=== PATIENT | female | born 1985 | race Caucasian/White ===

== ENCOUNTER 2019-12-01 16:02 | Emergency (ER) | payer OTHER, SELFPAY ==
--- NOTE | ~2019-12-01 | XR_ITS ---
EXAMINATION: XR hand RT min 3V INDICATION: Right hand pain, initial encounter TECHNIQUE: Three views of the right hand are obtained. COMPARISON: None available FINDINGS: There is an acute, traumatic, closed, oblique shaft fracture of the fourth metacarpal. Ther e is approximately one cortical width of medial displacement of the distal fracture fragment. Soft ti ssue swelling surrounds the fracture. The joint spaces are normal. No additional acute osseous findin gs are evident. IMPRESSION: 1. Acute shaft fracture of the fourth metacarpal. Reviewed, dictated and finalized at location A.
[2019-12-01 16:26] VITALS: BP 138/64; PULSE 68; RESP 16; TEMP 36.6; O2SAT 100
--- NOTE | 2019-12-01 16:45 | ED.GENADULT ---
HPI - General Adult General Chief complaint: Extremity Injury, Upper Stated complaint: right hand pain Time Seen by Provider: 12/01/19 16:33 Source: patient Mode of arrival: ambulatory Limitations: no limitations History of Present Illness HPI narrative: 34-year-old female patient presents to the [facility] with complaints of right hand pain. Patient states that about 3 days ago they were going up some steps with a friend and states that her friend tripped and started to fall back onto her and she fell back onto her right hand. Patient states since then she has had some pain to the right ring finger and right pinky pinky finger. Patient states she is also noticed some bruising to the dorsal palm side of the hand. Patient denies any numbness and tingling at this time. Patient states she has been icing and taking Tylenol for pain. Related Data Allergies Allergy/AdvReac Type Severity Reaction Status Date / Time No Known Allergies Allergy Verified 09/06/16 14:53 Review of Systems Review of Systems: Narrative: CONSTITUTIONAL: Denies fever, chills, or sweats. EYES: Denies visual changes, redness, or discharge. ENT: Denies rhinorrhea, congestion, sore throat, or otalgia. CARDIOVASCULAR: Denies chest pain, palpitations, or edema. RESPIRATORY: Denies cough or dyspnea. GASTROINTESTINAL: Denies abdominal pain, nausea, vomiting, or diarrhea. GENITOURINARY: Denies dysuria or hematuria. SKIN: Denies rash or itching. MUSCULOSKELETAL: Denies back pain, joint pain, or myalgia. Positive right hand pain NEUROLOGIC: Denies headache, numbness, or weakness. PSYCHIATRIC: Denies anxiety or depression. PMFSH Comments At the time of my signature I agree with nursing past medical history, surgical, social, and family history. There is no relevant family history pertinent to the presenting complaint. Exam Narrative: Exam Narrative: GENERAL: Well-appearing, well-nourished, and in no acute distress. HEAD: Normocephalic, atraumatic. EYES: PERRLA and EOMI. ENT: Nares clear, no rhinorrhea or epistaxis. Mucous membranes moist. NECK: Supple. No lymphadenopathy CHEST: Clear to auscultation. No respiratory distress. HEART: Regular rate and rhythm. No murmur heard. Normal peripheral pulses. ABDOMEN: Soft, nontender, nondistended, normal active bowel sounds. EXTREMITIES: The R hand is without obvious asymmetry or deformity when compared to the L hand. No swelling, erythema, atrophy, or obvious deformity. Patient does have some ecchymosis noted on the dorsal side of the hand right below the fourth and fifth digits as well as some bruising noted to the palm side underneath the fourth and fifth digits. The MIP joint on the fourth digit on the left hand does appear as distinctive as on the right hand and does appear to be flattened. No open wounds, nail avulsion, tissue avulsion, partial or complete amputation, subungual hematoma, bony deformity. Normal cascade of fingers. Normal flexion and extension of fingers. FDS and FDP intact aganist restistance. No focal fullness, thobbing pain, swelling of fingertip. Tenderness noted to the fourth digit on the right hand over the MIP joint. Pulses and cap refill. SKIN: Warm, dry, no rash. NEURO: No focal deficits. Alert and oriented x3. Course Reevaluation(s) Reevaluation #1: Reevaluated patient after her x-rays have resulted. Discussed with her that it does appear that she has a metacarpal fracture on the right hand. Discussed with her that our plan of care today is to go ahead and splint her and have her follow-up with Ortho. Discussed with her she can continue taking Tylenol for pain. Patient is aware the plan of care at this time denies any other questions or concerns. Date: 12/01/19 Time: 18:07 Vital Signs Vital signs: Vital Signs Temperature 36.6 C 12/01/19 16:26 Pulse Rate 68 12/01/19 16:26 Respiratory Rate 16 12/01/19 16:26 Blood Pressure 138/64 12/01/19 16:26 Pulse Oximetry 100 12/01/19 16:26
--- NOTE | 2019-12-01 18:35 | PC.NURSE ---
Camila ordered a Boxer splint to be placed on pt R hand. Splint applied.
[2019-12-01 18:36] VITALS: BP 124/80; PULSE 80; RESP 20; TEMP 36.7; O2SAT 99
== END 2019-12-01 18:37 | disposition home or self-care (01) ==
PROVIDERS: Emergency Provider Nurse Practitioner Family; PCP Internal Medicine Infectious Disease
DX: S62.324A Displaced fracture of shaft of fourth metacarpal bone, right hand, initial encounter for closed fracture (principal); W10.9XXA Fall (on) (from) unspecified stairs and steps, initial encounter
CPT/HCPCS: 29125; 73130; 99284

== ENCOUNTER 2020-08-17 11:22 | Outpatient (CLI) | payer OTHER, SELFPAY ==
--- NOTE | ~2020-08-17 | MMUS_ITS ---
EXAMINATION: MM diagnostic krystal LT w sherrie, US breast LT limited HISTORY: Left breast pain, possible left breast lump TECHNIQUE: ML, MLO and craniocaudal 3-D tomosynthesis images of the left breast were performed and sy nthetic 2-D images were generated. CAD analysis was submitted and interpreted. High resolution target ed upper outer quadrant left breast ultrasound which includes area of clinical complaint of possible lump was performed. COMPARISON: 05/23/2014 left breast ultrasound, reported normal BREAST PARENCHYMAL COMPOSITION: The breasts are heterogeneously dense, which may obscure small masses . FINDINGS: MAMMOGRAPHIC FINDINGS: No suspicious mass or architectural distortion, malignant calcification, skin thickening or retractio n is detected. ULTRASOUND: There is no evidence of focal abnormal solid or cystic lesion or abnormal shadowing in the vicinity o f the patient's complaint of left breast lump in the upper outer quadrant. IMPRESSION: 1. No mammographic evidence of malignancy 2. 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 No mammographic evidence of malignancy 2. Routine mammographic screening beginning at age 40 is recommended unless sym ptoms or physical findings present earlier BI-RADS Category 1: Negative
== END 2020-08-17 11:23 | disposition home or self-care (01) ==
PROVIDERS: PCP Internal Medicine Infectious Disease; Visit Provider Obstetrics & Gynecology
DX: N63.20 Unspecified lump in the left breast, unspecified quadrant (principal)
CPT/HCPCS: 76642; 77061; 77065; G0279

== ENCOUNTER → 2022-05-08 15:32 | Outpatient (CLI) | payer OTHER, SELFPAY ==
--- NOTE | ~2022-05-08 | XR_ITS ---
EXAMINATION: XR chest 2V 05/08/2022 16:55 INDICATION: Cough PROCEDURE: 2 view chest COMPARISON: 11/03/2018 FINDINGS: The lungs are clear. The cardiomediastinal silhouette is within normal limits. There are no pleural effusions. There is no pneumothorax suspected. There is dextroscoliosis of the thoracic spine. IMPRESSION: 1: NO ACUTE CARDIOPULMONARY DISEASE. Reviewed, dictated and finalized at location A. 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
== END ==
PROVIDERS: PCP Emergency Medicine; Visit Provider Emergency Medicine
DX: R05.9 Cough, unspecified (principal); R06.02 Shortness of breath
CPT/HCPCS: 71046

== ENCOUNTER 2022-07-20 12:36 | Emergency (ER) | payer OTHER, SELFPAY ==
--- NOTE | ~2022-07-20 | XR_ITS ---
XR wrist RT min 3V DATE: 07/20/2022 13:02 INDICATION: Right wrist pain following injury TECHNIQUE: 4 views COMPARISON: None FINDINGS: No fracture or dislocation, periosteal reaction or bone destruction. No erosive change or c hondrocalcinosis. Joint spaces are preserved. 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 SPREADER IMPRESSION: Negative
--- NOTE | ~2022-07-20 | XR_ITS ---
XR forearm RT 2V DATE: 07/20/2022 13:01 INDICATION: Right elbow and wrist pain TECHNIQUE: AP and lateral views COMPARISON: None FINDINGS: No fracture or dislocation, periosteal reaction or bone destruction. No elbow joint effusio n is evident. 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
[2022-07-20 12:38] VITALS: BP 135/74; PULSE 58; RESP 20; TEMP 36.7; O2SAT 100
--- NOTE | 2022-07-20 12:47 | ED.UPPEXIN ---
HPI - Extremity Injury (Upper) General Chief Complaint: Extremity Injury, Upper Stated Complaint: FOREARM INJURY Time Seen by Provider: 07/20/22 12:41 History of Present Illness HPI narrative: This is a 37-year-old female who denies past medical history, presenting the emergency department complaining of right elbow and wrist pain for the past 2 days. She states she fell while walking her dog 2 days ago landing on the right arm. Pain is dull and intermittently sharp, rated 4-5/10, aggravated with supination of the hand and flexion at the elbow. She has no other complaints today. Related Data Allergies Allergy/AdvReac Type Severity Reaction Status Date / Time No Known Allergies Allergy Verified 07/20/22 12:49 Review of Systems Review of Systems: CONSTITUTIONAL: Denies fever, chills, or sweats. CARDIOVASCULAR: Denies chest pain, palpitations, or edema. RESPIRATORY: Denies cough or dyspnea. GASTROINTESTINAL: Denies abdominal pain, nausea, vomiting, or diarrhea. GENITOURINARY: Denies dysuria or hematuria. MUSCULOSKELETAL: Right elbow pain denies back pain, or myalgia. PMFSH Surgical History Surgical History History of foot surgery bilateral Family History Family History Other Malignant neoplasm Social History Social History Smoking packs per day: 0.5 Smoking cigarettes per day: 10.0 Years smoked: 1 Smoking pack-years: 0.50 Smoking status: Former smoker Tobacco type: cigarettes Smoking end date: 06/08/11 Alcohol intake: current Drinks per week: 2 Substance use type: does not use Lack of Transportation: No Lack of Food: Never True Current Housing: I Have Housing Concerned About Future Housing: No Difficulty Paying Gas/Electric Bills: No Difficulty Paying for Meds: No Currently Unemployed: No Education: High School Diploma/GED Difficulty w/ Childcare or Family Care: No Exam Narrative: GENERAL: Well-appearing, well-nourished, and in no acute distress. HEAD: Normocephalic, atraumatic. CHEST: Clear to auscultation. No respiratory distress. No wheezes rales or rhonchi HEART: Regular rate and rhythm. No murmur heard. Normal peripheral pulses. ABDOMEN: Soft, nontender, nondistended, normal active bowel sounds. EXTREMITIES: Mild ecchymosis noted to the lateral aspect of the right elbow. There is no obvious deformity. Mild tenderness to flexion and extension of the right elbow, increased tenderness with supination of the right hand. No anatomical snuffbox tenderness to palpation. Normal range of motion. No edema. SKIN: Warm, dry, no rash. NEURO: No focal deficits. Alert and oriented x3. PSYCH: Normal mood and affect. Course Course Emergency Course: 13:26 - X-rays negative for fracture or dislocation. Recommend Tylenol and ibuprofen as needed for pain control. I recommended regular range of motion exercises. Discussed return and emergency precautions including signs/symptoms of neurovascular compromise. The patient voiced understanding and is comfortable with the plan. All questions answered to her satisfaction. Vital Signs Vital signs: Vital Signs Temperature 98.0 F 07/20/22 12:38 Pulse Rate 58 L 07/20/22 12:38 Respiratory Rate 20 07/20/22 12:38 Blood Pressure 135/74 07/20/22 12:38 Pulse Oximetry 100 07/20/22 12:38 Oxygen Delivery Room Air 07/20/22 12:38 Temperature 98.0 F 07/20/22 12:38 Pulse Rate 58 L 07/20/22 12:38 Respiratory Rate 20 07/20/22 12:38 Blood Pressure 135/74 07/20/22 12:38 Pulse Oximetry 100 07/20/22 12:38 Oxygen Delivery Room Air 07/20/22 12:38 MDM - Extremity Injury (Upper) MDM Narrative Medical decision making narrative: Plan: Imaging, reassess Differential Diagnosis Differential diagnosis: Likely other (Fracture, dislocation,
== END 2022-07-20 13:40 | disposition home or self-care (01) ==
PROVIDERS: Emergency Provider Preventive Medicine Aerospace Medicine; PCP Emergency Medicine
DX: S50.01XA Contusion of right elbow, initial encounter (principal); Z87.891 Personal history of nicotine dependence; W18.30XA Fall on same level, unspecified, initial encounter; Y93.K1 Activity, walking an animal
CPT/HCPCS: 73090; 73110; 99283

== ENCOUNTER 2022-09-01 14:00 | Outpatient (RCR) | payer OTHER, SELFPAY ==
--- NOTE | 2022-07-30 15:30 | OTOPEVAL1 ---
Assessment and note entered by ODILON Arrington/Ольга Evaluation Information Assessment Status Evaluation Diagnosis Fall with R arm injury 07/16/2022 Subjective Information Patient presents to outpatient OT following a fall onto elbow on 07/16/2022 resulting in pain, numbness and tingling in hand. Patient reports shooting pain and numbness in dorsal aspect of digit 1-2 and beck aspect of digit 4-5 with forearm supination/pronation. Patient reports it is difficult to perform gripping/grasping tasks, unable to open a bottle. Reported Pain Level Pain Score 0: Self Report Assessment OT Clinical Summary Viktoria is a R hand dominant female who presents to Outpatient OT following a fall resulting in R elbow pain. Patient reports pain in R elbow over the lateral/dorsal aspect with occasional numbness/ tingling in hand over the dorsal aspect of digits 1-2 and beck aspect of digits 4-5. 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 Patient has a R UE positive tinnels over the cubital tunnel and a negative elbow flexion test indicating ulnar nerve compression symptoms. Patient demonstrates sensation WNL measured through 2 point discrimination. Patient would benefit from skilled OT for UE exercise and instruction, modalities, manual therapy to increase functional use of R UE and decrease pain. Plan of Care Interventions Therapeutic Exercise,Manual Therapy,Neuro Re- education,Therapeutic Activities,Hot Pack/Cold Pack,Ultrasound,Paraffin OT Services Indicated Yes Treatment Frequency and 1x/week, 4 weeks Duration These treatments will address the objective and functional deficits as defined above. The patient will be advanced safely and appropriately in order for the patient to progress towards his/her prior level of function. Additional exercises will be introduced and as well as a comprehensive home exercise program upon discharge, if needed, ?to ensure carryover of functional gains achieved in the clinic. This treatment plan has been reviewed and agreement upon by the patient.
--- NOTE | 2022-08-20 14:27 | PCOTNOTE ---
Patient called & re-scheduled appointment this date due to work conflict. Re-scheduled treatment for 08/27/2022.
--- NOTE | 2022-09-01 15:07 | OTOPDC ---
Assessment and note entered by ODILON Arrington/Ольга Evaluation Information Assessment Status Discharge Diagnosis Fall with R arm injury 07/16/2022 Subjective Information Patient presents to outpatient OT following a fall onto elbow on 07/16/2022. 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 Patient reports no numbness in little fingers, decreased pain in thumb. Patient reports still notices occasional discomfort in elbow with pulling sheets onto beds at work, but is now able to complete all daily and functional tasks with R UE. Reported Pain Level Pain Score 0: Self Report Assessment OT Clinical Summary Viktoria is a R hand dominant female who presents to Outpatient OT for a re-evaluation following a fall resulting in R elbow pain. Patient attended x4 weeks of therapy for addressing pain in R elbow over the lateral/dorsal aspect with occasional numbness/tingling in hand over the dorsal aspect of digits 1-2 and beck aspect of digits 4-5. 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 Patient reports since beginning therapy is now able to complete all daily tasks with only occasional discomfort in elbow. Patient is pleased with progress made in therapy. Patient is to be discharged from skilled OT with goals met and independence with all HEP materials. Plan of Care OT Services Indicated No
== END 2022-09-02 09:53 | disposition home or self-care (01) ==
LOC: ANHGOSHOT 14:00
PROVIDERS: PCP Emergency Medicine; Visit Provider Family Medicine
DX: G56.20 Lesion of ulnar nerve, unspecified upper limb (principal); M79.601 Pain in right arm; M12.521 Traumatic arthropathy, right elbow
CPT/HCPCS: 97018; 97035; 97110; 97140; 97165

== ENCOUNTER 2023-03-05 12:49 | Outpatient (CLI) | payer OTHER, SELFPAY ==
--- NOTE | ~2023-03-05 | US_ITS ---
US breast LT limited DATE: 03/05/2023 14:32 INDICATION: Left breast lump at 12:00 1 cm from nipple TECHNIQUE: High-resolution real-time and color flow imaging targeted at 2:00 1 cm from nipple COMPARISON: 08/17/2020 diagnostic left mammogram and limited left breast ultrasound FINDINGS: No suspicious mass or suspicious shadowing or abnormal vascularity is detected in the area of concern. IMPRESSION: BI-RADS Category 1: Negative Reviewed, dictated and finalized at Location A. Reviewed, dictated and finalized at location A.
== END 2023-03-05 12:50 | disposition home or self-care (01) ==
PROVIDERS: PCP Emergency Medicine; Visit Provider Nurse Practitioner
DX: N63.20 Unspecified lump in the left breast, unspecified quadrant (principal)
CPT/HCPCS: 76642

== ENCOUNTER 2024-09-27 13:30 | Outpatient (CLI) | payer OTHER, SELFPAY ==
--- NOTE | ~2024-09-27 | MM_ITS ---
EXAMINATION: MM diagnostic krystal BI w sherrie HISTORY: Palpable left breast abnormality TECHNIQUE: Additional 3-D tomosynthesis images of the breasts were performed and synthetic 2-D images were generated. CAD analysis was submitted and interpreted. COMPARISON: 08/17/2020 BREAST PARENCHYMAL COMPOSITION: Dense: The breasts are heterogeneously dense, which may obscure small masses FINDINGS: There are no suspicious masses, calcifications or architectural distortion in either breast to suggest malignancy. IMPRESSION: 1. No mammographic evidence for malignancy. 2. Correlation with left breast ultrasound recommended for complete evaluation of palpable breast abn ormality. BI-RADS Category 0: Incomplete: Needs additional imaging evaluation. Reviewed, dictated and finalized at location A. IMPRESSION: 1. No mammographic evidence for malignancy. 2. Correlation with left breast ultrasound recommended for complete evaluation of palpable breast abnormality. BI-RADS Category 0: Incomplete: Needs additional imaging evaluation.
--- OUTSIDE RECORDS SUMMARY | 2024-09-27 15:18 | XMS_ITS | Clinical Summary ---
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
== END 2024-09-27 13:31 | disposition home or self-care (01) ==
PROVIDERS: PCP Emergency Medicine; Visit Provider Nurse Practitioner
DX: N63.0 Unspecified lump in unspecified breast (principal); R92.8 Other abnormal and inconclusive findings on diagnostic imaging of breast
CPT/HCPCS: 77062; 77066; G0279

== ENCOUNTER 2024-09-28 14:09 | Outpatient (CLI) | payer OTHER, SELFPAY ==
--- NOTE | ~2024-09-28 | US_ITS ---
US breast LT complete 09/28/2024 14:34 Indication: Palpable left breast abnormality Procedure: High-resolution complete ultrasound of the left breast including all 4 quadrants in the hurd bareolar location Comparison: Comparison to multiple prior studies sequentially, with oldest reviewed study dated 05/08. Findings: There is a cluster of microcysts at 6:00, 1 cm from the nipple. No other suspicious masses, or cysts are identified in the left breast to suggest malignancy. Normal heterogeneous echotexture. Impression: 1: No sonographic evidence for malignancy in the left breast. Routine yearly screening mammogram beginning at age 40 and regular clinical breast examination are re commended. BI-RADS CATEGORY 2 - BENIGN FINDINGS Reviewed, dictated and finalized at location A. Impression: 1: No sonographic evidence for malignancy in the left breast. Routine yearly screening mammogram beginning at age 40 and regular clinical ileana ast examination are recommended. BI-RADS CATEGORY 2 - BENIGN FINDINGS
--- OUTSIDE RECORDS SUMMARY | 2024-09-28 16:08 | XMS_ITS | Data Portability ---
Author Organization [facility] [place] Address [address] [place] [address] [place] [address] Care Team Providers Care Supervisor Engraving Name Role Phone YOCASTA RAMIREZ Primary Care Provider Assessment Encounter Date Assessment Date Assessment LastModified by Organization Details LastModified Time 01/22/2023 01/22/2023 Annual gynecological exam performed. Patient will come back in a year unless there are new symptoms. [email or web address] Not available 01/22/2023 15:22:13 Plan of Treatment Reminders Order Date Submit Date Provider Last Modified By Organization Details Last Modified Time Details Appointments None recorded. Lab urinalysis, dipstick [email or web address] [place] [address], [address], [address], [place], [address], 11:43:54 culture, urine 2024 025 [facility] (Lab), [address], [place], [address], 00:14:28 test, urine 2024 025 [email or web address] [place], [address], [address], [place], [address], 11:39:39 unlisted lab - women's health swab plus, ESTEFANI 2024 025 [facility] (Lab), [address], [place], [address], 00:14:28 Referral None recorded. Procedures None recorded. Surgeries None recorded. Imaging US, pelvis 2024 [address]25 [address], [address], [place], [address], 5 22:17:18 US, transvagina l 2024 [address], [address], [place], [address], 22:17:18 US, pelvis, complete 2024 025 [facility], [address], [place], [address], 04:00:45 MAMMO, diagnostic, digital, bilateral 2024 025 [facility], [address], [place], [address], 16:50:44 US, breast, unilateral - left breast lumps [email or web address], [address], [place], [address], 5 12:05:43 US, breast, unilateral 2022 023 [facility], [address], [place], [address], 3 15:27:41 Medication Orders None recorded. Patient TargetsNo targets recorded. Patient InstructionsNo instructions recorded. Reason for Referral None Reported. Results Created Date Observation Date Name Description Value Unit Range Abnormal Flag Note LastModifiedBy Organization Detail LastModifiedTime 01/23/20 23 01/22/2023 IMAGE GUIDE D PAP AND HPV REGAR DLESS image guided Pap, HPV regardless of Pap result SEE RESULT S BELOW CASE REPOR T: Cytol ogy Gynec ologi beatriz Repor t Case: [id number] Autho iban doyle Provi josep: Alyse Kowalski, BRIE Hernandes cted: 01/22 1522 Order ing Locat ion: [place] Patho logcarmen Recei trevin: 01/23 0235 First Scree n: Viola Gama ica Rescr een: Marielos day, Christina love, CT Speci men: Screvictoriano valverde Pap - Image d, Cervi x STATE MENT OF ADEQU ACY: Satis facto ry for evalu ation Trans forma tion zone compo nent absen t The absen ce of an endoc ervic al compo nent was confi rmed by an addit ional isabel myers. FINAL DIAGN OSIS: Negat ro for Intra epith elial Lesio n or Roman harper (NIL) . Elect laura daniels benjy d by Marielos day, Christina love, CT on 2022 at 5:41 PM ----- ----- ----- ----- ----- ----- ----- ----- ----- ----- ----- ----- ----- ----- ----- ----- ----- ---- HPV RESUL TS: HPV mRNA E6/E7 : No HPV mRNA Detec christiano NOTE: This high risk HPV mRNA assay detec ts fourt een high- risk HPV types (16, 18, 31, 33, 35, 39, 45, 51, 52, 56, 58, 59, 66, 68) witho ut diffe renti ation . COMME NT: This speci men was revie wed by a Cytot echno logis t and/o r Patho logis t (as indic ated in this repor t) after evalu ation using the Thinp rep Imagi ng Syste m. CLINI BEATRIZ INFOR MATIO N: Menst rual Statu s: LMP (if appli cable ): Clini beatriz Histo ry/Pr eviou s Pap: Type of Neopl beto (if appli cable ): Signi fican t Clini beatriz Findi ngs: Other Histo ry: Hormo kyle (if appli cable ): PAP EDUCA DELISA L NOTE: The Pap Test is a scree abram test with an inher ent false negat ro rate. Liqui d-bas ed sampl ing may decre ase, but will not elimi mukul, false negat ro resul ts. A negat ro resul t does not precl ude the prese nce and/o r devel opmen t of disea se, since the prese nce of abnor mal cells in the sampl e depen ds on the locat ion of the lesio n and sampl ing techn ique. Jennifer nued regul ar scree abram is the best metho d of cance r preve ntion . If repor christiano cytol ogic findi ng do not corre late with physi beatriz and/o r histo rical findi ngs, furth er inves tigat ion is recom fernando d, as clini melyssa warra nted. Not Available [facility] (Lab) [address] [facility], [place], [address], 01/23/2023 18:45:16 09/16/19 25 09/15/2024 WOMEN 'S HEALT H SWAB PLUS, ESTEFANI bacterial vaginosis (bv), tma Negati ve negati ve Not Available [facility] (Lab) [address] [place], [address], 09/18/2024 00:14:28 09/16/19 25 09/15/2024 WOMEN 'S HEALT H SWAB PLUS, ESTEFANI jada species, tma Negati ve negati ve Not Available [facility] (Lab) [address] [place], [address], 09/18/2024 00:14:28 09/16/19 25 09/15/2024 WOMEN 'S HEALT H SWAB PLUS, ESTEFANI jada glabrata, tma Negati ve negati ve Not Available [facility] (Lab) [address] [place], [address], 09/18/2024 00:14:28 09/16/1909/15/2024 WOMEN 'S HEALT H SWAB PLUS, ESTEFANI trichomonas vaginalis, tma Negati ve negati ve Not Available [facility] (Lab) [address] [place], [address], 09/18/2024 00:14:28 09/16/1909/15/2024 WOMEN 'S HEALT H SWAB PLUS, ESTEFANI chlamydia trachomatis, PCR Negati ve negati ve Not Available [facility] (Lab) [address] [place], [address], 09/18/2024 00:14:28 09/16/1909/15/2024 WOMEN 'S HEALT H SWAB PLUS, ESTEFANI neisseria gonorrhoeae, PCR Negati ve negati ve Bacte rial vagin osis detec ts the follo wing bacte cee assoc iated with bacte rial vagin osis (BV): Lacto bacil orlando (L. gasse ri, L. crisp atus and L. jense maikol), Gardn erell a vagin armani, and Atopo bium vagin ae. A singl e quali tativ e resul t is repor christiano base on instr ument softw are to deter mine BV posit ro or negat ro statu s. The Enma da speci es group tests for C. albic ans, C. tropi calis , C. parap debbi is, C. dubli niens is. Testi ng is perfo rmed using the Trans cript ion Media christiano Ampli ficat ion metho d. Tests for Enma da glabr juliet, Trich omona s vagin armani, Chlam ydia trach omati s, and Neiss eria gonor rhoea e are also inclu ded in this panel . Not Available [facility] (Lab) [address] [place], [address], 09/18/2024 00:14:28 09/16/1909/15/2024 CULTU RE: URINE result report SEE RESULT S BELOW Test: Cultu re: Urine Speci men Sourc e: Urine - Clean Catch Speci men Type: Urine Speci men Date: 2024 1502 Resul t Date: 2024 2310 Resul t Statu s: Final resul t Abnor mal: No Resul ting Lab: [facility] [address] [facility] [address] Tel: CULTU RE ----- ----- ----- --- Organ ism(s ) consi stent with uroge nital or skin xiao . Repea t cultu re if sympt oms indic ate. Not Available [facility] (Lab) [address], [place], [address], 09/18/2024 00:14:28 09/16/19 25 09/15/2024 urina lysis , dipst ick Leukocytes ++ Not Available [facility] [address], [place], [address], 09/15/2024 11:42:41 09/16/19 25 09/15/2024 urina lysis , dipst ick Nitrite + Not Available [place] [address], [place], [address], 09/15/2024 11:42:41 09/16/19 25 09/15/2024 urina lysis , dipst ick Urobilinogen normal Not Available [facility] nikita [address], [place], [address], 09/15/2024 11:42:41 09/16/19 25 09/15/2024 urina lysis , dipst ick Protein + Not Available [place] [address], [place], [address], 09/15/2024 11:42:41 09/16/19 25 09/15/2024 urina lysis , dipst ick pH 6 Not Available [place] [address], [place], [address], 09/15/2024 11:42:41 09/16/19 25 09/15/2024 urina lysis , dipst ick Blood +++ Not Available [place] [address], [place], [address], 09/15/2024 11:42:41 09/16/19 25 09/15/2024 urina lysis , dipst ick Specific [place] 1.015 [facility] Available [facility] [address], [place], [address], 09/15/2024 11:42:41 09/16/1909/15/2024 urina lysis , dipst ick Ketone - Not Available [place] [address], [place], [address], 09/15/2024 11:42:41 09/16/19 25 09/15/2024 urina lysis , dipst ick Bilirubin - Not Available [facility] victoriano [address], [place], [address], 09/15/2024 11:42:41 09/16/19 25 09/15/2024 urina lysis , dipst ick Glucose normal Not Available [place] [address], [place], [address], 09/15/2024 11:42:41 09/16/1909/15/2024 urina lysis , dipst ick Appearance cloudy Not Available [facility] [address], [place], [address], 09/15/2024 11:42:41 09/16/19 25 09/15/2024 urina lysis , dipst ick Color dark yellow brown Not Available [place] [address], [place], [address], 09/15/2024 11:42:41 09/17/1909/16/2024 pregn tacho test, urine HCG negati ve Not Available [place] [address], [place], [address], 09/16/2024 11:39:32 04/23/2003/05/2023 US, breas t, unila teral No observ ation record ed. [place] [id number] [facility] [address], [place], [address], 05/02/2023 16:48:14 09/28/19 25 09/27/2024 US, pelvi s No observ ation record ed. [email or web address] [place] [address], [place], [address], 09/27/2024 14:43:28 09/28/19 25 09/27/2024 US, trans vagin al No observ ation record ed. [email or web address] [place] [address], [place], [address], 09/27/2024 14:43:43 09/28/19 25 09/27/2024 US, pelvi s No observ ation record ed. [email or web address] [address], [place], [address], 09/28/2024 12:38:55 09/28/1909/27/2024 MAMMO , diagn ostic , digit al, bilat eral No observ ation record ed. [facility] [address] [facility] [address], [place], [address], 09/27/2024 16:50:44 Result Notes None recorded. Problems Name Problem SNOMED Code Status Onset Date Resolution Date Notes Provider Name and Address Organization Details Recorded Time Pelvic and perineal pain 234240995 Completed 201901/02/2021 Pelvic and perineal pain;Pra ctice ID: 0001 Viji Castellon [place], [place] - [facility] 10:52:15 Pregnanc y test negative [id number] Completed 201908/15/2021 Encounte r for pregnanc y test, result negative ;Practic e ID: [address] [facility] 2 16:45:50 Bleeding [id number] Completed 201901/02/2021 Abnormal uterine and vaginal bleeding , unspecif ied;Prac steph ID: [address] [facility] 10:51:46 Atypical squamous cells of undeterm ined signific ance on cervical Papanico laou smear [id number] Completed 201001/02/2021 Pap Abnormal ASCUS;Pr actice ID: [address] [facility] 10:51:30 Amenorrh ea [id number] Completed 201001/02/2021 AMENORRH EA;Pract ice ID: [address] [facility] 10:51:28 Poor growth affectin g manageme nt [id number] Completed 201001/02/2021 GROWTH POOR SGA;Prac steph ID: [address] [facility] 10:52:19 Labor and delivery complica christiano by heart rate anomaly [id number] Completed 201001/02/2021 HEART RATE NON REASSURI NG;Pract ice ID: [address] [facility] 10:52:01 Routine antenata l care Completed 201008/15/2021 Supervis ion of other normal pregnanc y;Practi ce ID: [address] [facility] 2 16:45:58 Speciali zed medical examinat ion Completed 201008/15/2021 Routine gynecolo gical examinat ion;Prac steph ID: 0001 [facility]iji [facility] 16:46:06 Pregnanc y test positive [id number] Completed 201008/15/2021 Positive Pregnanc y Test;Pra ctice ID: 0001 Viji dang [facility] 2 16:45:52 Screenin g for malignan t neoplasm of cervix Completed 201008/15/2021 Pap Smear;Pr actice ID: 0001 [facility] 16:46:00 Uterine size for dates discrepa ncy [id number] Completed 201008/15/2021 UTERINE SIZE DEBBY-ANTE PAR;Prac steph ID: [address] [facility] 2 16:46:10 Primigra live [id number] Completed 201008/15/2021 Supervis ion of normal first pregnanc y;Practi ce ID: 0001 [facility] 16:45:56 anatomy study Completed 201001/02/2021 [facility] ANATMC SURVEY;P ractice ID: 0001 [facility] 10:51:48 Delivery normal [id number] Completed 201101/02/2021 Normal delivery ;Practic e ID: 0001 Viji dang [facility] 10:51:39 Single live [id number] Completed 201108/15/2021 Mother with single liveborn ;Practic e ID: 0001 Viji dang [facility] 2 16:46:01 Postpart um care Completed 201101/02/2021 Routine postpart um follow-u p;Practi ce ID: 0001 [facility] 10:52:20 Ill-defi eve intestin al infectio n Completed 201101/02/2021 No Show Fee;Prac steph ID: 0001 Viji dang, [facility] 10:51:59 Vaginiti s and vulvovag initis Completed 201108/15/2021 Vaginiti s and vulvovag initis, unspecif ied;Prac steph ID: 0001 Viji dang, [facility] 2 16:46:12 Family planning surveill ance Completed 201101/02/2021 Contrace ptive surveill ance, unspecif ied;Prac steph ID: 0001 Viji dang, [facility] 10:51:45 Pain of breast [id number] Completed 201301/02/2021 Mastodyn ia;Pract ice ID: 0001 Viji Castellon [facility], [facility] 10:52:14 Breast lump [id number] Completed 201301/02/2021 Lump or mass in breast;P ractice ID: 0001 Viji dang, [facility] 10:51:32 Missed miscarri age [id number] Completed 201301/02/2021 Missed ;Practic e ID: 0001 Viji dang [facility] 10:52:10 Miscarri age with complica tion [id number] Completed 201301/02/2021 Spontane ous , complete , with unspecif ied complica tion;Pra ctice ID: 0001 [facility] 10:52:[address] Concept Completed 201508/15/2021 Encntr for inner tube inserter exam (general ) (routine ) w/o abn findings ;Practic e ID: 0001 Viji dang, [facility] 2 16:46:04 Uterine size for dates discrepa ncy Completed 201508/15/2021 Uterine size-chance e discrepa ncy, first trimeste r;Practi ce ID: 0001 Viji dang, [facility] 2 16:46:08 Gestatio n less than 9 weeks [id number] Completed 201501/02/2021 Less than 8 weeks gestatio n of pregnanc y;Practi ce ID: 0001 Viji dang, [facility] 1 10:51:52 Pregnanc y detectio n examinat ion Completed 201508/15/2021 Encounte r for pregnanc y test, result positive ;Practic e ID: 0001 [facility] 16:45:49 Normal pregnanc y in multigra live [id number] Completed 201501/02/2021 Encounte r for suprvsn of normal pregnanc y, first trimeste r;Practi ce ID: 0001 [facility] 10:52:12 Pregnanc y, childbir th and puerperi um finding Completed 201508/15/2021 Encntr for suprvsn of normal first preg, second trimeste r;Practi ce ID: 0001 Viji Castellon [facility], [facility] 2 16:45:55 Clinical finding Completed 201601/02/2021 Unspecif ied placenta l disorder , third trimeste r;Practi ce ID: 0001 Viji dang, [facility] 1 10:51:37 Gestatio n period, 28 weeks [id number] Completed 201601/02/2021 28 weeks gestatio n of pregnanc y;Practi ce ID: [address] [facility] 10:51:53 Placenta previa [id number] Completed 201601/02/2021 Placenta previa specifie d as w/o hemorrha ge, third trimeste r;Practi ce ID: [address] [facility] 10:52:17 Gestatio n period, 36 weeks [id number] Completed 201601/02/2021 36 weeks gestatio n of pregnanc y;Practi ce ID: [address] [facility] 10:51:55 Labor and delivery complica tion by meconium in amniotic fluid [id number] Completed 201601/02/2021 Labor and delivery complica christiano by meconium in amniotic fluid;Pr actice ID: [address] [facility] 10:52:03 Gestatio n period, 41 weeks [id number] Completed 201601/02/2021 41 weeks gestatio n of pregnanc y;Practi ce ID: [address] [facility] 10:51:56 Lochia finding Completed 201601/02/2021 Encounte r for routine postpart um follow-u p;Practi ce ID: [address] [facility] 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 10:51:58 Disorder of breast [id number] Completed 201801/02/2021 Disorder of breast, unspecif ied;Prac steph ID: [address] [facility] 1 10:51:41 Clinical finding Completed 201601/02/2021 Unspecif ied placenta l disorder , second trimeste r;Record ed Elsewher e: No Locat ion: [facility] S ource: EHR Clinical Director jos: N Practi ce ID: 0001 Jerry lable Time: 04:30:[address] [facility] 1 10:51:35 Educatio n Completed 201601/02/2021 Encounte r for other general counseli ng and advice on contrace ption;Re corded Elsewher e: No Locat ion: [facility] S ource: EHR Clinical Director jos: N Practi ce ID: 0001 Jerry lable Time: 11:30:[address] [facility] 1 10:51:[address] Concept Completed 201608/15/2021 Encntr for general adult medical exam w/o abnormal findings ;Recorde d Elsewher e: No Locat ion: [facility] S ource: EHR Clinical Director jos: N Practi ce ID: 0001 Jerry lable Time: 01:30:[address] [facility] 2 16:46:03 Finding of sensatio n of breast Completed 201801/02/2021 Mastodyn ia;Recor ded Elsewher e: No Locat ion: [facility] S ource: EHR Clinical Director jos: N Practi ce ID: 0001 Jerry lable Time: 03:15:[address] [facility] 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 1 10:51:33 Problem Notes None recorded. Procedures Surgical History Date Name Laterality Status Provider Name and Address Organization Details Recorded Time 3 Date of Last Pap Smear completed Gilma Carter [facility] 09/08/2024 10:26:13 1 Date of Last Mammogram completed Viji Castellon [facility] 01/02/2021 10:57:39 procedure on foot completed Cherri Bailey [facility] 11/07/2019 12:18:41 Imaging Results Imaging Date Name Status LastModified by Organization Details LastModified Time 03/05/2023 US, breast, unilateral completed [facility] [address], [place], [address], 05/02/2023 16:48:14 09/27/2024 US, pelvis completed [email or web address] [place] [address], [place], [address], 09/27/2024 14:43:28 09/27/2024 US, transvaginal completed [email or web address] [facility] [address], [place], [address], 09/27/2024 14:43:43 09/27/2024 US, pelvis active [email or web address], [place], [address], 09/28/2024 12:38:55 09/27/2024 MAMMO, diagnostic, digital, bilateral active [facility] [address] [facility] [address], [place], [address], 09/27/2024 16:50:44 Procedure Notes None recorded. Medical Equipment None Reported. Allergies No known drug allergies Medications Name Sig Start Date Stop Date Status Note LastModified by Organization Details LastModified Time clindamyc in HCl 300 mg capsule TAKE 1 CAPSULE BY MOUTH THREE TIMES DAILY 12/25 completed Not Available Not Available Not Available ibuprofen 800 mg tablet TAKE 1 TABLET BY MOUTH THREE TIMES DAILY 09/08 completed Not Available Not Available Not Available ofloxacin 0.3 % eye drops instill 1 drop by ophthalm ic route 4 times every day into affected eye(s) 09/10 completed Prescrib ed Elsewher e: No [facility] By: samuel Encounte r DateTime : 07/08/19 17 05:00:00 PM Not Available Not Available Not Available Cytotec 200 mcg tablet insert 4 by by vagina route all at once 01/10 completed Prescrib ed Elsewher e: No [facility] By: espinoza leon DateTime : 12/22/19 14 04:45:00 PM Not Available Not Available Not Available fluconazo le 150 mg tablet Take 1 tablet by mouth now, repeat in 7 days 01/22 completed Not Available Not Available Not Available benzonata te 200 mg capsule TAKE 1 CAPSULE BY MOUTH THREE TIMES DAILY NEEDED FOR COUGH 09/08 completed Not Available Not Available Not Available fluconazo le 200 mg tablet Take 1 tablet every other day x 3 doses. 01/22 completed Not Available Not Available Not Available Zithromax Z-Ozzy 250 mg tablet take 2 tablet (500MG) by oral route every day for 1 day then 1 tablet (250 mg) by oral route once daily for 4 days 07/12 completed Prescrib ed Elsewher e: No Locat ion: [facility] odify By: laura Victoriano carolyn DateTime : 07/08/19 14 10:15:32 AM Not Available Not Available Not Available metronida zole 500 mg tablet TAKE 1 TABLET BY MOUTH TWICE DAILY FOR 7 DAYS 12/25 completed Not Available Not Available Not Available acetamino phen 300 mg-codein e 30 mg tablet 12/11 completed Not Available Not Available Not Available Reglan 10 mg tablet take 1 tablet (10MG) by oral route 4 times every day 30 minutes before meals and at bedtime 06/20 completed Prescrib ed Elsewher e: No Locat ion: [facility] odify By: norman leon DateTime : 05/27/20 11 01:30:00 PM Not Available Not Available Not Available amoxicill in 500 mg tablet TAKE 1 TABLET BY MOUTH EVERY 8 HOURS DIRECTED 09/08 completed Not Available Not Available Not Available buspirone 10 mg tablet 12/11 completed Not Available Not Available Not Available prednison e 50 mg tablet TAKE 1 TABLET BY MOUTH DAILY 09/08 completed Not Available Not Available Not Available promethaz ine 25 mg tablet TAKE 1 TABLET BY MOUTH EVERY 4 TO 6 HOURS NEEDED FOR NAUSEA 12/25 completed Not Available Not Available Not Available gabapenti n 300 mg capsule TAKE ONE CAPSULE BY MOUTH THREE TIMES DAILY NEEDED FOR CUBITAL TUNNEL PAIN. 12/25 completed Not Available Not Available Not Available diclofena c sodium 50 mg tablet,de layed release TAKE 1 TABLET BY ORAL ROUTE 2 TIMES EVERY DAY 01/02 completed Prescrib ed Elsewher e: No Locat ion: [facility] odify By: candice mays DateTime : 07/19/19 19 02:55:05 PM Not Available Not Available Not Available ibuprofen 600 mg tablet TAKE 1 TABLET BY MOUTH EVERY 6 HOURS NEEDED FOR PAIN 12/25 completed Not Available Not Available Not Available albuterol sulfate HFA 90 mcg/actua tion aerosol inhaler INHALE 1 PUFF BY MOUTH EVERY 4 HOURS NEEDED FOR SHORTNES S OF BREATH OR WHEEZING 12/25 completed Not Available Not Available Not Available Vitamin D2 1,250 mcg (50,000 unit) capsule take 1 capsule ([id number]) by oral route every week 06/20 completed Prescrib ed Elsewher e: No Locat ion: Shayy victoriano [facility] odify By: norman leon DateTime : 09/16/19 12 04:00:34 PM Not Available Not Available Not Available Terazol 7 0.4 % vaginal cream insert 1 applicat orful by vaginal route every day for 7 days at bedtime 06/26 completed Prescrib ed Elsewher e: No Locat ion: [facility] odify By: harish mays DateTime : 06/20/19 14 04:00:00 PM Not Available Not Available Not Available Mayi 0.35 mg tablet take 1 tablet by oral route every day 12/22 completed Prescrib ed Elsewher e: No [facility]at [facility] By: espinoza leon DateTime : 10/28/19 17 11:30:00 AM Not Available Not Available Not Available Flovent HFA 220 mcg/actua tion aerosol inhaler INHALE 1 PUFF BY MOUTH EVERY 12 HOURS 12/25 completed Not Available Not Available Not Available chlorhexi dine gluconate 0.12 % mouthwash RINSE AND SPIT 15ML BY MOUTH TWICE DAILY. DO NOT EAT OR DRINK FOR 30 MINUTES FOLLOWIN G RINSE. 09/08 completed Not Available Not Available Not Available NuvaRing 12/11 completed Not Available Not Available Not Available diclofena c 1 % topical gel APPLY 2 GRAMS TO THE AFFECTED AREA(S) BY TOPICAL ROUTE 4 TIMES PER DAY 11/06 completed Not Available Not Available Not Available Triveen-D uo DHA 29 mg-1 mg-400 mg oral pack take 1 by Oral route every day 02/07 completed Prescrib ed Elsewher e: No Locat ion: Shayy victoriano [facility] odify By: [email or web address] alvesuntjacqui DateTime : 12/20/19 14 11:15:00 AM Not Available Not Available Not Available 28 mg iron-800 mcg tablet take 1 capsule by mouth once daily 12/22 completed Prescrib ed Elsewher e: No Locat ion: [facility] victor[facility] M oddomenic By: [email or web address] E ncounter DateTime : 02/12/20 16 01:32:54 PM Not Available Not Available Not Available guaifenes in ER 600 mg tablet, extended release 12 hr TAKE 1 TABLET BY MOUTH TWICE DAILY 12/25 completed Not Available Not Available Not Available EluRyng 0.12 mg-0.015 mg/24 hr vaginal ring INSERT 1 RING INTRAVAG INALLY EVERY MONTH 12/25 completed Not Available Not Available Not Available Vitals Date Recorded Body height Body mass index (BMI) Body weight Systolic blood pressure Diastolic blood pressure Provider Name and Address Organization Details Last Updated DateTime 12/25/2022 158.75 cm 22 kg/m2 57005.27 g 129 mm[Hg] 80 mm[Hg] Dione Rainey [facility] 3 15:05:20 Date Recorded Body height Body mass index (BMI) Body weight Systolic blood pressure Diastolic blood pressure Provider Name and Address Organization Details Last Updated DateTime 01/22/2023 158.75 cm 22 kg/m2 14313.27 g 104 mm[Hg] 68 mm[Hg] Massiel De Leon [facility] 3 15:22:43 Date Recorded Body height Body mass index (BMI) Body weight Systolic blood pressure Diastolic blood pressure Provider Name and Address Organization Details Last Updated DateTime 09/08/2024 158.75 cm 22.6 kg/m2 06034.92 g 121 mm[Hg] 77 mm[Hg] [facility] 5 10:24:12 Date Recorded Body height Body mass index (BMI) Body weight Systolic blood pressure Diastolic blood pressure Provider Name and Address Organization Details Last Updated DateTime 09/15/2024 158.75 cm 23 kg/m2 42664.82 g 109 mm[Hg] 72 mm[Hg] [facility] 5 10:59:05 Social History Question Answer Notes LastModified by Organizat ion Details LastModified Time Tobacco Smoking Status Former Smoker Massiel Schroedter [facility] 01/22/2023 15:22:47 Do You Have An Advance Directive? No Information not available 01/22/2023 What Is Your Level Of Alcohol Consumption? Occasional Information not available 01/02/2021 Are You Blind Or Do You Have Difficulty Seeing? No Information not available 01/02/2021 What Is Your Level Of Caffeine Consumption? Occasional Information not available 01/02/2021 How Much Tobacco Do You Chew? None Information not available 05/26/2022 In The 14 Days Before Symptom Onset, Have You Had Close Contact With A Laboratory-confir med COVID-19 While That Case Was Ill? No Information not available 05/26/2022 In The 14 Days Before Symptom Onset, Have You Had Close Contact With A Person Who Is Under Investigation For COVID-19 While That Person Was Ill? No Information not available 05/26/2022 Have You Been To An Area Known To Be High Risk For COVID-19? No Information not available 05/26/2022 Are You Currently Employed? Yes [email or web address] Information not available 09/15/2024 Are You Deaf Or Do You Have Serious Difficulty Hearing? No Information not available 01/02/2021 What Type Of Diet Are You Following? REGULAR Information not available 01/02/2021 What Is The Highest Grade Or Level Of School You Have Completed Or The Highest Degree You Have Received? 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 No Information not available 05/26/2022 Have You Ever Been Counseled For Unhealthy Alcohol Use? No [email or web address] Information not available 09/15/2024 Do You Use Protection During Sex? Usually Information not available 01/22/2023 Do You Use Your Seat Belt Or Car Seat Routinely? Yes Information not available 01/02/2021 Are You Sexually Active? Yes Information not available 09/15/2024 Do You Have Smoke And Carbon Monoxide Detectors In Your Home? Yes Information not available 01/02/2021 How Much Tobacco Do You Smoke? No Information not available 05/26/2022 Do You Feel Stressed (tense, Restless, Nervous, Or Anxious, Or Unable To Sleep At Night)? [id number] Information not available 01/02/2021 Do You Use Any Illicit Or Recreational Drugs? No Information not available 01/02/2021 Do You Use Sunscreen Routinely? Yes Information not available 01/02/2021 Has Tobacco Cessation Counseling Been Provided? Yes [email or web address] Information not available 09/15/2024 Have You Used IV Drugs? No Information not available 05/26/2022 Do You Or Have You Ever Used Any Other Forms Of Tobacco Or Nicotine? No [email or web address] Information not available 09/15/2024 Sex: Female Functional Status Question Answer Note LastModified by Organizat ion Details LastModified Time Do you have difficulty walking or climbing stairs? No [email or web address] Information not available 09/15/2024 Are you able to walk? YESWOREST Information not available 01/02/2021 Are you able to care for yourself? Yes Information not available 09/15/2024 Do you have difficulty dressing or bathing? No Information not available 09/15/2024 What is your exercise level? Moderate Information not available 01/02/2021 Mental Status None recorded. Family History Relationship Description Onset Age of this Age Resolved Age Notes LastModified by Organization Details LastModified Time Unspecified Relation Family history unknown Not available 2024 10:24:30 Medical History Condition Response Allergies (Food, seasonal, environmental ) N Other N Breast Cancer N Drug/Latex Allergies/Reactions N Blood Transfusion N Dermatologic Disorders N Lung Disease N Defects or Inherited Disease N Breast Problem N Gestational Diabetes N Hematologic disorders N Anesthesia Complications N History of STI N Deep Vein Thrombosis N Polycystic ovary syndrome N Anxiety Disorder N Autoimmune disease N Arthritis N Infertility N Polyps N Acid Reflux (GERD) N History of abnormal pap N Cancer N Stroke N Varicosities N Neurologic/Epilepsy N Endometriosis N High Cholesterol N Headaches N Fibromyalgia N Kidney Disease N Heart Problems N Kidney or Bladder Problems N Thyroid Problems N GI Problems N Eating Disorder N Anemia N Art (IVF or FET) N Psychiatric Illness N Ovarian Cancer N Diabetes N Pulmonary (TB, Asthma) N Hepatitis/Liver Disease N No Past Medical History Y Eczema N Urinary Tract Infection N Abuse/Domestic Violence N Asthma N Trauma/Violence N Depression/ depression N Heart Disease N Pre-Eclampsia N Hypertension N Osteoporosis N Thrombophilias N Gynecological History Statement/Question Response Date of Last Mammogram 08/17/2020 Flow Moderate Date of LMP 09/01/2024 N Was last menstrual period normal N STIs/STDs N Date of Last Colonoscopy Desired Control Method None Abnormal Pap Y On BCP's at Conception? N HPV Vaccine N Duration of Flow (days) 6 14 Current Control Method None Age at First Child 27 Are cycles usually normal N Frequency of Cycle (Q days) 30 Most Recent Bone Density Sexually Active? Y Menses Monthly Y Age of first menstrual cycle 15 Date of Last Pap Smear 01/22/2023 Sexual Problems? N LMP Approximate N Obstetrics History GPAL:G 4 P 2 0 2 2 Type Value Full Term 2 Spontaneous 2 Living 2 Total 4 Past Encounters Encounter ID Performer Location Encounter Start Date Encounter Closed Date Diagnosis/Indication Diagnosis SNOMED-CT Code Diagnosis ICD10 Code Diagnosis Note [id number] Zulma Castellon [place] [address] [address] 11/07/2019 11:58:24 11/07/2019 12:44:10 Cyst of left ovary 0941282408 [id number] N83.292 [id number] Sarah Pillai , [facility] [address] [address] 11/07/2019 11:59:23 11/07/2019 13:55:24 Cyst of ovary 17992557 N83.209 Patient is here today to f/u for TVUS for previous ovarian cyst. Her US results were wnl today. She is doing well without sx's or other issues. She is doing well on Nuvaring & requests RF of this therapy. All questions answered to patient satisfacti on. RTO x 1yr RF nuvaring sent x 1yr Time spent in visit is a total of 15 mins with at least 50% of visit consisting of counseling and review of plan of care. [id number] Maday Mao [place] [address] [address] 12/12/2019 11:52:22 12/12/2019 12:29:40 Contraception care management 823601894 Z30.9 Gynecologi c examination 94104393 Z01.419 Take Calcium with Vitamin D 1200mg daily if not receiving in daily diet. It is strongly advised to have an annual flu shot and up can obtain at most pharmacies . If you have not had a TDap shot in the last 10 years you should obtain one as well. Discussed with patient & provided with informatio n regarding Gardisil vaccine to prevent the 4 strains for HPV that cause cervical cancer if under age 26. Encourage safe sexual practices, to use condoms and limit partners if not already in a monogamous relationsh ip. Do monthly self breast exams. Have mammogram yearly or every other year depending on family history. BRCA testing is now available for patients with strong genetic history of female cancer. If interested contact the office. Engage in daily exercise of low impact aerobic exercise 45-60 minutes 4-5 times weekly. Avoid tobacco and illicit drugs as well as using moderation with alcohol intake less than 1-2 8 oz beverages daily. This lifestyle behavior pattern will lead to less health conditions and longer life span. If BMI greater than 25 weight watchers or dietary consult advised. Patient received above instructio ns, and questions have been answered. If you have any questions please call or respond to this email. Patient was made aware of the patient portal and may obtain a paper copy of today's plan if desired. [id number] Dm Kilpatrick MD [place] [address] [address] 07/18/2020 14:32:24 07/18/2020 15:25:17 Fibrocystic disease of breast [id number] N60.19 ultrasound left breast will be performed. She was given detailed recommenda tions and written informatio n about fibrocysti c breast change. Her pain persist we will send her to a breast specialist . [id number] CHELA [facility] [address] [address] 01/02/2021 10:32:12 01/02/2021 11:31:08 Gynecologic examination 40191381 Z01.419 Take Calcium with Vitamin D 1200mg daily if not receiving in daily diet. It is strongly advised to have an annual flu shot and up can obtain at most pharmacies . If you have not had a TDap shot in the last 10 years you should obtain one as well. Discussed with patient & provided with informdelgado calhoun regarding Gardisil vaccine to prevent the 4 strains for HPV that cause cervical cancer if under age 26. Encourage safe sexual practices, to use condoms and limit partners if not already in a monogamous relationsh ip. Do monthly self breast exams. Have mammogram yearly or every other year depending on family history. BRCA testing is now available for patients with strong genetic history of female cancer. If interested contact the office. Engage in daily exercise of low impact aerobic exercise 45-60 minutes 4-5 times weekly. Avoid tobacco and illicit drugs as well as using moderation with alcohol intake less than 1-2 8 oz beverages daily. This lifestyle behavior pattern will lead to less health conditions and longer life span. If BMI greater than 25 weight watchers or dietary consult advised. Patient received above instructio ns, and questions have been answered. If you have any questions please call or respond to this email. Patient was made aware of the patient portal and may obtain a paper copy of today's plan if desired. Pap/hpv sentStd declinedNo issues or concerns Vaginitis 79317815 N76.0 Prevention Going to [facility] ion care management 169860408 Z30.9 Happy on NuvaringRF sent [id number] CHELA [facility] [address] [address] 08/16/2021 10:06:04 08/16/2021 11:03:22 Contraception care management 508095400 Z30.9 Happy on NuvaringRF sent Vaginitis 64758735 N76.0 Today suspect BV with yeast prevention sent.Possi ble that the irregular brown spotting she was having was irritation plus irregularl y shed lining from period this past month. She also got a late start on her nuvaring which could have caused this issue.If happens again will contact office and schedule TVUS with possible lab work. Time spent in visit is a total of 15 mins with at least 50% of visit consisting of counseling and review of plan of care.Addit ional precaution sofya measures were taken to minimize potential exposure to the Covid-19 virus during this patient s visit, including available hand director recreation upon arrive, temperatur e check and being asked a series of screening questions. All staff wore face coverings during this encounter, as well as provided additional cleaning and sanitizing of all surfaces, including countertop s, pens, chairs, door handles, light switches, etc, prior to and following the patient s visit. [id number] CHELA Ol[facility] [place] [address],[place] [address] 05/26/2022 16:08:56 05/26/2022 17:00:59 Vaginitis 28102846 N76.0 Suspect BV on examVagini tis panel sentSTI endocervic al testing sentVulvar care guidelines discussed in-depthDi scontinue use of bath bombsRTC if symptoms persist past treatment Time spent in visit is a total of 20 mins with at least 50% of visit consisting of counseling and review of plan of care. Venereal d isease screening 021809856 Z11.3 [id number] CHELA Olvera [place] [address],[place] [address] 12/25/2022 14:52:59 12/25/2022 15:27:59 Venereal disease screening 729342316 Z11.3 STI / vaginitis panel sentdiscus sed likely postcoital bleeding related to her menstrual cycle given timingUPT declinedRT C for WWE in 2-3 weeks, will update pap - if postcoital bleeding occurs again will update u/s at that point. Time spent in visit is a total of 25 mins with at least 50% of visit consisting of counseling and review of plan of care. Postcoital bleeding 4888 0000 N93.0 [id number] CHELA Olvera [place] [address],[place] [address] 01/22/2023 15:06:47 01/22/2023 16:26:39 Gynecologic examination 24708516 Z01.419 Take Calcium with Vitamin D 1200mg daily if not receiving in daily diet. It is strongly advised to have an annual flu shot and up can obtain at most pharmacies . If you have not had a TDap shot in the last 10 years you should obtain one as well. Discussed with patient & provided with informatio n regarding Gardisil vaccine to prevent the 4 strains for HPV that cause cervical cancer if under age 26. Encourage safe sexual practices, to use condoms and limit partners if not already in a monogamous relationsh ip. Do monthly self breast exams. Have mammogram yearly or every other year depending on family history. BRCA testing is now available for patients with strong genetic history of female cancer. If interested contact the office. Engage in daily exercise of low impact aerobic exercise 45-60 minutes 4-5 times weekly. Avoid tobacco and illicit drugs as well as using moderation with alcohol intake less than 1-2 8 oz beverages daily. This lifestyle behavior pattern will lead to less health conditions and longer life span. If BMI greater than 25 weight watchers or dietary consult advised. Patient received above instructio ns, and questions have been answered. If you have any questions please call or respond to this email. Patient was made aware of the patient portal and may obtain a paper copy of today's plan if desired. WWEBC - condoms, happy with this methodpap updatedSTI testing declinedfa m hx discussedU TD with PCP for routine labsRTC in 1 year or sooner if needed Mass of left breast [id number] 2054229 N63.20 left breast lump x 3-5 years. Has seen a breast specialist in the past, normal imaging last 2-3 years ago. Still present, tenderness comes and goes. Will update u/s for further evaluation . [id number] CHELA Olvera [place] [address] [address] 09/08/2024 10:14:44 09/08/2024 12:05:42 Pain of breast 61501300 N64.4 order given for bilateral diagnostic mammogram with left breast u/slimit caffeine, can restart evening primrose oilquestio ns answeredwi ll reach out to pt with imaging results when available Time spent in visit is a total of 25 mins with at least 50% of visit consisting of counseling and review of plan of care. Breast lump 55210888 N63 .0 [id number] CHELA Olvera [place] [address] [address] 09/15/2024 10:50:45 09/18/2024 08:32:36 Urinary symptoms 042921153 R39.9 Venereal d isease screening 316891377 Z11.3 Postcoital bleeding 4888 0000 N93.0 gc/ct/tric h testing sent, vaginitis panel sentUPT (-)UA done, cx sentrecomm ended pelvic u/s - orderedRTC for review results/WW E - update pap Time spent in visit is a total of 30 mins with at least 50% of visit consisting of counseling and review of plan of care. [id number] [facility] [address] [address] 09/27/2024 10:06:33 09/27/2024 10:32:56 Postcoital bleeding 14389477 N93.0 Health Concerns Section Related Observation LastModified by Organization Detai ls LastModified Time None Recorded Concern Status LastModified by Organization Details LastModified Time None Recorded Advance Directives Directive N: Payers Encounter Date Sequence Insurance Name Policy Number Policy Willson Covered Member ID Willson Member ID Guarantor Name 12/25/2022 1 [facility] (MEDICAID HMO) [id number] Viktoria Perigo [id number] Viktoria Perigo 01/22/2023 1 [employer] [facility] [facility] [place] ([place] H[place]) [id number] Viktoria Perigo [id number] Viktoria Perigo 09/08/2024 1 [employer] [facility] [place] [id number] Viktoria Perigo [id number] Viktoria Perigo 09/15/2024 1 [employer] [facility] [place] [id number] Viktoria Perigo [id number] Viktoria Perigo 09/27/2024 1 [employer] [facility] [place] [id number] Viktoria Perigo [id number] Viktoria [place] Perigo Notes Date Note Type Note Provider Name and Address Organization Details Recorded Time 12/25/2022 text/html 37yopresents for evaluation of postcoital bleedingLMP 12/05, had an episode of postcoital bleeding that occurred 2 days after her period ended. She has had IC since with no bleeding.condoms for BC, no new partnersneg d/c,odors, itchingneg pelvic painhx of LEEP years ago per patient, last past 2020 - normal CHELA [facility] [address], [place], [address], [facility] 12/25/2022 15:23:47 01/22/2023 text/html Annual GYNReport ed bypatient.Menstrual cycle:Normal menses Urinary symptoms:No hematuria; No incontinence Vulva:No genital lesion Vagina:Normal vaginal discharge Breast:No breast pain; No breast lump; No nipple discharge Current Contraception:Satisfi ed with current contraception; Condoms Sexual complaints:No sexual complaints; No pain during intercourse; Normal libido Menopausal Symptoms:No menopausal symptoms; Normal vaginal lubrication Psychological symptoms:No depression; No anxiety; No PMDD Preventive measures:Encourage self breast examination; Encourage regular exercise; Encourage no tobacco use; Encourage regular mammograms starting age 40 CHELA [facility] [address], [place], [address], [facility] 01/22/2023 16:26:21 09/08/2024 text/html 39yopresents for evaluation of left breast lumps/tendernesssympt oms have been on and off for the past 5 yrsleft breast u/s done in 2022 for left breast pain/lumps - bi-rads 1saw a breast specialist previously around for these symptomspreviously was taking evening primrose oil which helped with the pain neg nipple dischargeneg rednessneg n/v/fneg flu-like symptoms LMP 09/01uses condoms for BCdoes not drink caffeine CHELA Olvera [address], [place], [address], [facility] 09/08/2024 11:54:32 09/15/2024 text/html 39yopresents wit h complaints of postcoital bleedingSA with new partner x 4 monthspostcoital bleeding with last 3 acts of IChas noticed some cramping that comes and goes neg n/v/fneg flu-like symptomsneg d/c, odors, itching CHELA Olver[facility] [address], [place], [address], [place] [facility] 09/16/2024 11:41:15 OBGyn Episode Ob Episode Information Episode Created Date Number of Fetuses Patient Bloodtype Patient rh Status Prepregnancy Weight lbs Domestic Partner Domestic Partner Phone Father Name Investor Relations Director Status 11/07/19 20 1 CLOSED Fetus Data First Name Last Name Admitted to NICU Weight (g) Sex Living Outcome Pediatric Complications Fetus ID Race Codes Race Delivery Type 3061.74 6 M Full Term 1879 Vaginal Delivery Eliud Calculation Initial Eliud Date Initial Exam Date Initial Exam Provider Initial Ultrasound Date Last Menstrual Period Date Ultra Sound Weeks Gestation 0 Eighteen To Twenty Week Eliud Update Ultra Sound Date Fundal Height At Umbil Quickening Date Ultra Sound Latest Weeks Gestation Final Eliud Confirmed By Final Eliud Confirmed Date Final Eliud Date Ultra Sound Latest Days Gestation 0 0 Menstrual History Last Menstrual Date Menses Monthly On Bcp Conception Prior Menses Frequency Hcg Plus Date Menarche Onset Age Delivery Information Delivery Date Delivery Type Labor Anesthesia Weeks Gestation Incision Type Labor Labor Length Hrs Delivered By Post Complications Tubal Sterilization Discharge Date Comments 2 40 Discharge Information Feeding Method Contraceptive Method Maternal HG B and HCT Levels Ob Episode Information Episode Created Date Number of Fetuses Patient Bloodtype Patient rh Status Prepregnancy Weight lbs Domestic Partner Domestic Partner Phone Father Name Investor Relations Director Status 11/07/19 20 1 CLOSED Fetus Data First Name Last Name Admitted to NICU Weight (g) Sex Living Outcome Pediatric Complications Fetus ID Race Codes Race Delivery Type 3345.24 1 M Full Term 1880 Vaginal Delivery Eliud Calculation Initial Eliud Date Initial Exam Date Initial Exam Provider Initial Ultrasound Date Last Menstrual Period Date Ultra Sound Weeks Gestation 0 Eighteen To Twenty Week Eliud Update Ultra Sound Date Fundal Height At Umbil Quickening Date Ultra Sound Latest Weeks Gestation Final Eliud Confirmed By Final Eliud Confirmed Date Final Eliud Date Ultra Sound Latest Days Gestation 0 0 Menstrual History Last Menstrual Date Menses Monthly On Bcp Conception Prior Menses Frequency Hcg Plus Date Menarche Onset Age Delivery Information Delivery Date Delivery Type Labor Anesthesia Weeks Gestation Incision Type Labor Labor Length Hrs Delivered By Post Complications Tubal Sterilization Discharge Date Comments 7 41 Discharge Information Feeding Method Contraceptive Method Maternal HG B and HCT Levels Ob Episode Information Episode Created Date Number of Fetuses Patient Bloodtype Patient rh Status Prepregnancy Weight lbs Domestic Partner Domestic Partner Phone Father Name Investor Relations Director Status 12/12/19 20 1 CLOSED Fetus Data First Name Last Name Admitted to NICU Weight (g) Sex Living Outcome Pediatric Complications Fetus ID Race Codes Race Delivery Type , Spontane ous [id number] Eliud Calculation Initial Eliud Date Initial Exam Date Initial Exam Provider Initial Ultrasound Date Last Menstrual Period Date Ultra Sound Weeks Gestation 0 Eighteen To Twenty Week Eliud Update Ultra Sound Date Fundal Height At Umbil Quickening Date Ultra Sound Latest Weeks Gestation Final Eliud Confirmed By Final Eliud Confirmed Date Final Eliud Date Ultra Sound Latest Days Gestation 0 0 Menstrual History Last Menstrual Date Menses Monthly On Bcp Conception Prior Menses Frequency Hcg Plus Date Menarche Onset Age Delivery Information Delivery Date Delivery Type Labor Anesthesia Weeks Gestation Incision Type Labor Labor Length Hrs Delivered By Post Complications Tubal Sterilization Discharge Date Comments 4 Discharge Information Feeding Method Contraceptive Method Maternal HG B and HCT Levels Ob Episode Information Episode Created Date Number of Fetuses Patient Bloodtype Patient rh Status Prepregnancy Weight lbs Domestic Partner Domestic Partner Phone Father Name Investor Relations Director Status 12/12/19 20 1 CLOSED Fetus Data First Name Last Name Admitted to NICU Weight (g) Sex Living Outcome Pediatric Complications Fetus ID Race Codes Race Delivery Type , Spontane ous [id number] Eliud Calculation Initial Eliud Date Initial Exam Date Initial Exam Provider Initial Ultrasound Date Last Menstrual Period Date Ultra Sound Weeks Gestation 0 Eighteen To Twenty Week Eliud Update Ultra Sound Date Fundal Height At Umbil Quickening Date Ultra Sound Latest Weeks Gestation Final Eliud Confirmed By Final Eliud Confirmed Date Final Eliud Date Ultra Sound Latest Days Gestation 0 0 Menstrual History Last Menstrual Date Menses Monthly On Bcp Conception Prior Menses Frequency Hcg Plus Date Menarche Onset Age Delivery Information Delivery Date Delivery Type Labor Anesthesia Weeks Gestation Incision Type Labor Labor Length Hrs Delivered By Post Complications Tubal Sterilization Discharge Date Comments 1 Discharge Information Feeding Method Contraceptive Method Maternal HG B and HCT Levels
--- OUTSIDE RECORDS SUMMARY | 2024-09-28 16:08 | XMS_ITS | Clinical Summary ---
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
== END 2024-09-28 14:10 | disposition home or self-care (01) ==
LOC: ANHIMG 14:10
PROVIDERS: PCP Emergency Medicine; Visit Provider Nurse Practitioner
DX: N63.20 Unspecified lump in the left breast, unspecified quadrant (principal)
CPT/HCPCS: 76641

== ENCOUNTER 2025-01-27 16:16 | Emergency (ER) | payer OTHER, SELFPAY ==
[2025-01-27 16:23] VITALS: BP 122/79; PULSE 70; RESP 18; TEMP 36.3; O2SAT 100
--- NOTE | 2025-01-27 16:35 | ED.ANIMALBIT ---
HPI - Animal Bite General Chief Complaint: Animal Bite Stated Complaint: Cat Bite Time Seen by Provider: 01/27/25 16:38 Source: patient Mode of arrival: ambulatory Limitations: no limitations History of Present Illness HPI narrative: 39 y/o female presented for c/o cat bite and scratches to right lower leg sustained yesterday. States she was bitten by an outdoor cat who resides in her friend's neighborhood. Unsure if the cat has an parks and recreation worker or if it is utd on any vaccinations. Pt states she was walking by the cat and spoke to it, when it raised its fur and lunged at her leg. She reports 4 bite senior with multiple abrasions. She cleansed the areas immediately after injury by taking a bath, then applied hydrogen peroxide and alcohol to the wounds. Has applied neosporin and covered the puncture sites. Pt UTD on tetanus. Denies any other complaints at this time. Related Data Allergies Allergy/AdvReac Type Severity Reaction Status Date / Time No Known Allergies Allergy Verified 01/11/24 15:45 Review of Systems Review of Systems: CONSTITUTIONAL: Denies body aches, fever, chills, or sweats. EYES: Denies visual changes, redness, or discharge. ENT: Denies rhinorrhea, congestion CARDIOVASCULAR: Denies chest pain, palpitations, or edema. RESPIRATORY: Denies cough or dyspnea. GASTROINTESTINAL: Denies abdominal pain, nausea, vomiting, or diarrhea. SKIN: reports cat bites and scratches MUSCULOSKELETAL: Denies back pain, joint pain, or myalgia. NEUROLOGIC: Denies headache, numbness, tingling, or weakness. [facility] Surgical History Surgical History History of foot surgery bilateral Family History Family History Father Alcoholism Depression Mother Depression Heart disease Small cell carcinoma Unknown Asthma Other Malignant neoplasm Social History Social History Smoking packs per day: 0.5 Smoking cigarettes per day: 10.0 Years smoked: 1 Smoking pack-years: 0.50 Smoking status: Former smoker Tobacco type: cigarettes Smoking end date: 06/08/11 Alcohol intake: current Drinks per week: 2 Substance use type: does not use Lack of Transportation: No Lack of Food: Never True Current Housing: I Have Housing Concerned About Future Housing: No Difficulty Paying Gas/Electric Bills: No Difficulty Paying for Meds: No Currently Unemployed: No Education: High School Diploma/GED Difficulty w/ Childcare or Family Care: No Comments At time of signature, I have reviewed and agree with nursing past medical, surgical, social and family history unless otherwise noted. Please see nursing chart for further information. There is no relevant family history pertinent to the presenting complaint Exam Narrative: GENERAL: Well-appearing EYES: conjunctivae clear, and EOMI. ENT: Mucous membranes moist. Oropharynx without edema, erythema or lesions. NECK: Supple. No lymphadenopathy CHEST: Clear to auscultation. HEART: Regular rate and rhythm. SKIN: Warm, dry. Right lateral lower leg with 4 puncture wounds and surrounding erythema 5cm diameter, mild swelling, tender; c/w cat bite as reported. Distal lateral lower leg with scattered linear abrasions without active drainage or surrounding induration c/w cat scratches as reported. No purulent drainage or streaking noted. NEURO: Alert and oriented x3. Course Course Emergency Course: Patient is aware of diagnosis, understands and agrees to treatment plan. Anticipatory guidance given. Patient agrees to follow-up as directed and is aware of reasons to seek care at the emergency department. Portions of this record may have been created with voice recognition software Level of Care: Express Care Visit Vital Signs Vital signs: Vital Signs Temperature 97.4 F L 01/27/25 16:23 Pulse Rate 70 01/27/25 16:23 Respiratory Rate 18 01/27/25 16:23 Blood Pressure 122/79 01/27/25 16:23 Pulse Oximetry 100 01/27/25 16:23 Oxygen Delivery Room Air 01/27/25 16:23 Temperature 97.4 F L 01/27/25 16:23 Pulse Rate 70 01/27/25 16:23 Respiratory Rate 18 01/27/25 16:23 Blood Pressure 122/79 01/27/25 16:23 Pulse Oximetry 100 01/27/25 16:23 Oxygen Delivery Room Air 01/27/25 16:23 Reviewed MDM - Animal Bite MDM Narrative Medical decision making narrative: Pt presented with puncture wounds and scratches sustained from a cat yesterday. Pt is utd on tetanus. Pt's wounds cleansed. IJEOMA and Bandaids applied to the bite puncture sites. Reviewed Rx, advised supportive measures and signs and symptoms to go to the ER. Patient is appropriate for outpatient treatment and follow-up Spoke with Infectious Disease RN Ashley, who advised pt can contact [facility] to quarantine the cat and monitor for neuro symptoms. She can defer Rabies prophylaxis at this time. Ashley will contact pt Thursday after confirming any further testing needs with the Health Department as well. Differential Diagnosis Differential diagnosis: Likely bite by animal, cat bite and rabies contact Discharge Plan Discharge Clinical Impression: Cat bite Patient Disposition: Home Condition: Stable Instructions: Antibiotic Form, Animal Bite (ED) Additional Instructions: Expect a call from Ashley the infectious disease nurse to discuss your care You can contact the [facility] for further management and testing. Recommend contacting animal control, so they may quarantine the cat and monitor for neurological symptoms. Take the antibiotic as directed Keep the area clean and dry - cleanse with warm water and mild soap and allow to fully dry. Avoid alcohol or hydrogen peroxide to the site Ok to apply neosporin to the site Keep it open to air (no bandages unless draining) Watch for worsening symptoms including pain, redness, swelling, streaking, pus/drainage, fever. Go to the ER with any of these symptoms or concerns. Follow up with primary care provider in 1 week as needed. Patient Language: Lao Prescriptions: New amoxicillin-pot clavulanate 875-125 mg tablet 1 tablet PO Q12H 10 Days Qty: 20 0RF Follow-up/Referrals: PHYSICIAN,TOUR GUIDE [Primary Care Provider, Internal Medicine]
--- NOTE | 2025-01-30 14:35 | PC.NURSE ---
Attempted to call patient twice to follow-up with her regarding Urgent Care on 01/27/2025 visit for cat bite/scatch. Patient did not answer and her voicemail is full.
--- NOTE | 2025-01-31 15:56 | PC.NURSE ---
Made third attempt to reach patient regarding [facility]'s guidance on the cat bite/scratch. [facility] stated the [facility] bite would be considered a provoked attack; therefore, the patient did not need to received Rabies PEP.
== END 2025-01-27 17:18 | disposition home or self-care (01) ==
PROVIDERS: Emergency Provider Nurse Practitioner Family
DX: S81.831A Puncture wound without foreign body, right lower leg, initial encounter (principal); W55.01XA Bitten by cat, initial encounter; Z87.891 Personal history of nicotine dependence
CPT/HCPCS: 99213; G0463

== ENCOUNTER 2025-03-12 18:58 | Emergency (ER) | payer OTHER, SELFPAY ==
[2025-03-12 19:10] VITALS: BP 110/58; PULSE 83; RESP 16; TEMP 36.2; O2SAT 100
--- NOTE | 2025-03-12 19:28 | ED.SKABFB ---
HPI - Skin/Abscess/Foreign Bdy General Chief complaint: Skin/Abscess/Foreign Body Stated complaint: RASH Time Seen by Provider: 03/12/25 19:29 Source: patient Mode of arrival: ambulatory Limitations: no limitations History of Present Illness HPI narrative: 40-year-old female presented for complaint of rash spreading from both forearms to the left neck. Onset 3 days. Rash started after doing yard work. Has been applying clear calamine lotion and taking Benadryl. Denies lip, tongue, or throat swelling, shortness of breath or wheezing. Denies changes to soap, detergent, lotion, or any other exposures. No one else in the house or any contacts with similar symptoms. Related Data Allergies Allergy/AdvReac Type Severity Reaction Status Date / Time No Known Allergies Allergy Verified 03/12/25 19:12 Review of Systems Review of Systems: CONSTITUTIONAL: Denies body aches, fever, chills, or sweats. EYES: Denies visual changes, redness, or discharge. ENT: Denies rhinorrhea, congestion CARDIOVASCULAR: Denies chest pain, palpitations, or edema. RESPIRATORY: Denies cough or dyspnea. GASTROINTESTINAL: Denies abdominal pain, nausea, vomiting, or diarrhea. SKIN: Reports rash on arms and neck MUSCULOSKELETAL: Denies back pain, joint pain, or myalgia. NEUROLOGIC: Denies headache, numbness, tingling, or weakness. [facility] Surgical History Surgical History History of foot surgery bilateral Family History Family History Father Alcoholism Depression Mother Depression Heart disease Small cell carcinoma Unknown Asthma Other Malignant neoplasm Social History Social History Smoking packs per day: 0.5 Smoking cigarettes per day: 10.0 Years smoked: 1 Smoking pack-years: 0.50 Smoking status: Former smoker Tobacco type: cigarettes Smoking end date: 06/08/11 Alcohol intake: current Drinks per week: 2 Substance use type: does not use Lack of Transportation: No Lack of Food: Never True Current Housing: I Have Housing Concerned About Future Housing: No Difficulty Paying Gas/Electric Bills: No Difficulty Paying for Meds: No Currently Unemployed: No Education: High School Diploma/GED Difficulty w/ Childcare or Family Care: No Comments At time of signature, I have reviewed and agree with nursing past medical, surgical, social and family history unless otherwise noted. Please see nursing chart for further information. There is no relevant family history pertinent to the presenting complaint Exam Narrative: GENERAL: Well-appearing HEAD: Normocephalic, atraumatic. EYES: conjunctivae clear, and EOMI. ENT: Mucous membranes moist. Oropharynx without edema, erythema or lesions. NECK: Supple. No lymphadenopathy CHEST: Clear to auscultation. HEART: Regular rate and rhythm. SKIN: Warm, dry. Erythematous vesicular rash noted to bilateral wrists and left neck, and left lower abdomen consistent with contact dermatitis. No active drainage. Nontender. NEURO: Alert and oriented x3. Course Course Emergency Course: Patient is aware of diagnosis, understands and agrees to treatment plan. Anticipatory guidance given. Patient agrees to follow-up as directed and is aware of reasons to seek care at the emergency department. Portions of this record may have been created with voice recognition software Level of Care: Express Care Visit Vital Signs Vital signs: Vital Signs Temperature 97.1 F L 03/12/25 19:10 Pulse Rate 83 03/12/25 19:10 Respiratory Rate 16 03/12/25 19:10 Blood Pressure 110/58 L 03/12/25 19:10 Pulse Oximetry 100 03/12/25 19:10 Temperature 97.1 F L 03/12/25 19:10 Pulse Rate 83 03/12/25 19:10 Respiratory Rate 16 03/12/25 19:10 Blood Pressure 110/58 L 03/12/25 19:10 Pulse Oximetry 100 03/12/25 19:10 Reviewed MDM - Skin/Abscess/Foreign Bdy MDM Narrative Medical decision making narrative: Discussed physical exam findings and RXs. Advised supportive measures and signs/symptoms to go to the ER. Pt is appropriate for outpt treatment and f/u. Differential Diagnosis Differential diagnosis: Likely abscess of skin or subcutaneous tissue, viral exanthem, dermatophytosis, urticaria, herpes zoster, cellulitis, eczema, insect bites, impetigo and contact dermatitis Discharge Plan Discharge Clinical Impression: Contact dermatitis Patient Disposition: Home Condition: Stable Instructions: Antibiotic Form, Contact Dermatitis (ED) Additional Instructions: Take steroids and Pepcid as directed. Benadryl every 8 hours as needed. Or you can take Zyrtec according to package directions Cool compresses to the sites of itching, avoid hot water. Avoid scratching to reduce the risk of infection Follow up with your primary care provider as needed in 1 week Go to the ER for worsening symptoms or concerns (lip, tongue, throat swelling/itching, trouble breathing etc) Patient Language: Pashto Prescriptions: New famotidine [Pepcid] 40 mg tablet 40 mg PO DAILY Qty: 10 0RF prednisone 20 mg tablet 20 mg PO DAILY Qty: 18 0RF Rx Instructions: take 3 tablets daily for 3 days, then 2 tablets daily for 3 days then 1 tablet daily for 3 days Follow-up/Referrals: PHYSICIAN NOT ON STAFF,NONSTAFF [Primary Care Provider] Time of Disposition: 19:34
== END 2025-03-12 19:37 | disposition home or self-care (01) ==
PROVIDERS: Emergency Provider Nurse Practitioner Family
DX: L25.9 Unspecified contact dermatitis, unspecified cause (principal); Z87.891 Personal history of nicotine dependence
CPT/HCPCS: 99213; G0463